=== PATIENT | male | born 2000 | race Caucasian/White ===

== ENCOUNTER 2025-07-25 20:40 | Emergency (ER) | payer OTHER ==
[~2025-07-25] VITALS: Ht 195.6 cm; Wt 114.6 kg
[2025-07-25] MEDS ORDERED: KETO-204 PO (23:27)
[2025-07-25] MEDS: KETOROLAC 30 MG/ML 1 ML VIAL IM ONE (23:44)
[2025-07-26 00:38] VITALS: BP 108/58; TEMP 97.9; O2SAT 98
== END 2025-07-26 00:38 | disposition home or self-care (01) ==
LOC: M ED 20:40 → EDBD 20:40 → M ED 07-26 00:38
DX: S30.12XA Contusion of groin, initial encounter (principal); Y92.9 Unspecified place or not applicable; Y93.29 Activity, other involving ice and snow; Y99.9 Unspecified external cause status; W22.8XXA Striking against or struck by other objects, initial encounter; N50.3 Cyst of epididymis; I86.1 Scrotal varices; Z79.2 Long term (current) use of antibiotics
CPT/HCPCS: 76857; 76870; 93976; 96372; 99283; J1885